=== PATIENT | male | born 1945 | race Two or more races ===

== ENCOUNTER → 2021-09-26 | Outpatient (CLI) | payer MEDICARE, OTHER | END | disposition home or self-care (01) | LOC: MSC 11:35 | PROVIDERS: ATTEND Anesthesiology | DX: G89.4 Chronic pain syndrome (principal); M54.16 Radiculopathy, lumbar region; M50.10 Cervical disc disorder with radiculopathy, unspecified cervical region; M62.830 Muscle spasm of back; Z85.46 Personal history of malignant neoplasm of prostate; Z79.1 Long term (current) use of non-steroidal anti-inflammatories (NSAID) ==

== ENCOUNTER 2022-04-03 09:30 | Outpatient (CLI) | payer MEDICARE, OTHER | END 2022-04-03 23:59 | disposition home or self-care (01) | LOC: MSC 09:30 | PROVIDERS: ATTEND Anesthesiology | DX: M50.10 Cervical disc disorder with radiculopathy, unspecified cervical region (principal); M54.16 Radiculopathy, lumbar region; M62.830 Muscle spasm of back; G89.4 Chronic pain syndrome; C61 Malignant neoplasm of prostate; Z90.79 Acquired absence of other genital organ(s); Z79.1 Long term (current) use of non-steroidal anti-inflammatories (NSAID); Z79.899 Other long term (current) drug therapy ==